=== PATIENT | female | born 1945 | race Caucasian/White ===

== ENCOUNTER → 2018-04-25 | Outpatient (CLI) | payer OTHER, MEDICARE | LOC: CIMAGING 07:38 | PROVIDERS: ATTEND Nurse Practitioner | DX: Z12.31 Encounter for screening mammogram for malignant neoplasm of breast (principal) ==

== ENCOUNTER → 2018-06-02 | Outpatient (CLI) | payer OTHER, MEDICARE | LOC: CIMAGING 09:06 | PROVIDERS: ATTEND Nurse Practitioner | DX: E11.9 Type 2 diabetes mellitus without complications (principal); E78.2 Mixed hyperlipidemia; R91.1 Solitary pulmonary nodule; Z87.891 Personal history of nicotine dependence | CPT/HCPCS: 71250-PO ==

== ENCOUNTER → 2018-06-10 | Outpatient (CLI) | payer OTHER, MEDICARE | LOC: CIMAGING 07:27 | PROVIDERS: ATTEND Nurse Practitioner | DX: R10.11 Right upper quadrant pain (principal); K83.8 Other specified diseases of biliary tract | CPT/HCPCS: 76705-PO ==

== ENCOUNTER → 2018-06-13 | Outpatient (CLI) | payer OTHER, MEDICARE | LOC: EMCIMAGING 12:06 | PROVIDERS: ATTEND Nurse Practitioner | DX: K80.50 Calculus of bile duct without cholangitis or cholecystitis without obstruction (principal); R10.11 Right upper quadrant pain | CPT/HCPCS: 74181-PN ==

== ENCOUNTER 2018-07-31 09:28 | Emergency (ER) | payer OTHER, MEDICARE ==
--- NOTE | 2018-07-31 11:00 | EDPHY ---
H & P Stated Complaint: poss. foreign body rt lung Time Seen by Provider: 07/31/18 09:39 HPI/ROS: CHIEF COMPLAINT: Pill down the wrong place History by patient HISTORY OF PRESENT ILLNESS: 72-year-old woman presents complaining of acute onset of right-sided chest pain, wheezing and cough shortly after taking her usual trazodone tell. Patient states that she took the pill with water and did not show but then suddenly felt like it was in the wrong place. She had lots of coughing all night. When she woke up this morning she coughed up a small piece of pill. She still feels the pleuritic chest pain and discomfort in her chest as if the pill is stuck in there. She had she has been able to eat and drink this morning without difficulty. She did take alcoholic [employer] cream and her coffee this morning. REVIEW OF SYSTEMS: As in HPI, and all other systems reviewed and are negative Source: Patient - Personal History Current Tetanus Diphtheria and Acellular Pertussis (TDAP): Yes - Medical/Surgical History Hx Asthma: No Hx Chronic Respiratory Disease: No Hx Diabetes: No Hx Cardiac Disease: No Hx Renal Disease: No Hx Cirrhosis: No Hx Alcoholism: No Hx HIV/AIDS: No Hx Splenectomy or Spleen Trauma: No Other PMH: no medical hx. hysterectomy - Social History Smoking Status: Former smoker - Physical Exam Exam: General Appearance: Alert, comfortable, speaking full sentences. Head: normocephalic, atraumatic Eyes: Pupils equal and round, reactive to light, no pallor or injection. Extraocular movements intact Mouth: Mucous membranes moist. Respiratory: Slightly increased effort, left clear, positive wheezing on right only with decreased sounds at the right base Cardiovascular: Regular rate and rhythm. S1, S2, no murmurs, gallops or rubs appreciated Gastrointestinal: Abdomen is soft and nontender, no masses, bowel sounds normal. Back: No CVA tenderness, no bony tenderness Neurological: Awake, alert and oriented x 3, no pronator drift, normal gait, no pronator drift Skin: Warm and dry, no rashes. Musculoskeletal: No deformities or tenderness. Full range of motion Extremities: no edema, no tenderness, DP2+ bilat Psychiatric: Patient has normal affect, there is no agitation. Constitutional: Initial Vital Signs Temperature (C) 36.4 C 05/16/19 09:43 Heart Rate 90 07/31/18 09:43 Respiratory Rate 20 07/31/18 09:43 Blood Pressure 157/115 H 07/31/18 09:43 O2 Sat (%) 91 L 07/31/18 09:43 O2 Delivery Mode Room Air Allergies/Adverse Reactions: codeine [Codeine] Allergy (Verified 07/31/18 09:41) Home Medications: Medication Instructions Recorded Herbals 08/07/09 Natural Remedies 08/07/09 SIMVASTATIN 08/07/09 Metformin HCl 07/31/18 traZODone 07/31/18 Medical Decision Making - Diagnostics Imaging Results: Imaging Impressions Chest X-Ray 07/31/18 09:53 Impression: Medial right basilar opacity with elevation of the right hemidiaphragm, which could be related to postobstructive atelectasis and/or pneumonia. Chest CT 07/31/18 10:10 Impression: Partially obstructive right endobronchial fluid/fat density debris as described with right middle lobe aspiration pneumonitis. Continued radiographic surveillance is recommended until resolution is documented. lM John was notified of these findings by telephone at 10:51 AM on 2018. Imaging: Discussed imaging studies w/ yardage caller Radiologist, I viewed and interpreted images myself ED Course/Re-evaluation: 72-year-old woman presents with right-sided pleuritic chest pain and isolated wheezing after feeling she inhaled her trazodone pill. Chest x-ray was done which showed no obvious foreign body. CT scan was then done which showed the pill in her right lower bronchus with associated pneumonitis. I discussed the case with Dr. Yayo Johnson, land law examiner on-call who requests the patient transfer to [facility] for bronchoscopy. I discussed the case Dr. Nathan Tom in the emergency department who accepts the patient in transfer. I discussed the CT findings and the plan with the patient who understands and is agreeable. Because she admitted to drinking a fair amount of [employer] virus cream this morning her will drive her there as she is refusing ambulance transport. In preparation for her procedural sedation and IV was placed and ECG was done. ECG showed normal sinus rhythm with normal axis normal intervals and poor R- wave progression in the anterior leads. Impression: Abnormal EKG. Departure - Departure Disposition: [facility] ER Clinical Impression: Foreign body in bronchus Qualifiers: Encounter type: initial encounter Qualified Code(s): T17.508A - Unspecified foreign body in bronchus causing other injury, initial encounter Condition: Fair Referrals: Jia Echavarria, ROAD MANAGER [Primary Care Provider] - As per Instructions
[2018-07-31] MEDS ORDERED: BENZOCAINE UNIT DOSE SPRAY HURRICAINE MM ONE (12:28)
[2018-07-31] MEDS ORDERED: MIDAZOLAM 2 MG/2 ML VIAL ONE (12:29)
[2018-07-31] MEDS ORDERED: LIDOCAINE 1% 300 MG/30 ML SDV ONE ×2 (12:29→12:30)
[2018-07-31] MEDS ORDERED: LIDOCAINE 2% JELLY 6 ML TOPICAL SYR ONE (12:29)
[2018-07-31] MEDS ORDERED: fentaNYL 100 MCG/2 ML INJ ONE (12:29)
[2018-07-31] MEDS ORDERED: LIDOCAINE 1% 2 ML INJ ID PRN (12:56)
[2018-07-31] MEDS ORDERED: NS 500 ML IV ONE ×2 (12:56→13:56)
[2018-07-31] MEDS ORDERED: ALBUTEROL 3 ML DEYVIAL IH ONE (12:56)
--- NOTE | 2018-07-31 14:05 | PDHPUP ---
History & Physical Update H&P update statement: Pill aspiration into the right lower lobe. Patient aspirated a pill last night at 10:30 a.m.. Has had persistent pulmonary symptoms. Presented to [facility] this morning. Congestion heard on the right. CT scan shows material in the right lower lobe bronchus consistent with her known pill aspiration. She has no significant medical problems that would be a contraindication to bronchoscopy. She is on no anti-platelet agents and no anti coagulants. Other medications are as listed. She is allergic possibly to penicillins and codeine. Physical examination reveals a pleasant woman who is in no distress. Vital signs within normal limits. On room air saturations are in the mid 90s. HEENT is unremarkable. The chest reveals coarse breath sounds with a focal wheeze over the lower right chest. Few rales are present. The heart is regular in rate and rhythm, no gallop, no murmur. The abdomen extremities are within normal limits. Neurologic examination is normal. CT scan was reviewed with findings as noted above. In addition she has a pulmonary nodule on the right, this apparently has been known for years, followed for years without change. There is a vague infiltrate anteriorly and the right middle lobe. This may be related to her aspiration. A/P: Pill aspiration, with retained pill/pill materials in the right lower lobe. For bronchoscopy and removal of the pills/pill fragments/associated mucus. Cultures will be sent. Antibiotics postprocedure may or may not be needed. If she does well anticipate she will be discharged home for outpatient follow-up as needed. All the above was discussed with the patient and her family. Risks and benefits were discussed.
--- NOTE | 2018-07-31 14:06 | PDPROPOC ---
Sedation Plan of Care Sedation Plan of Care: vital signs stable, mental status noted, patient educated of risks, benefits, alternatives, patient can tolerate sedation ASA Classification: ASA 2 Planned drugs: fentanyl, midazolam Mallampati Score: Class 2 Mallampati Reference Image: Patient passed 3-3-2 rule?: Yes
[2018-07-31] MEDS ORDERED: ALBUTEROL 3 ML DEYVIAL ONE (14:46)
[2018-07-31 17:17] VITALS: BP 97/58
--- NOTE | 2018-07-31 17:52 | GPN ---
[f rep st] PROCEDURE NOTE PROCEDURE: Therapeutic bronchoscopy. REASON FOR BRONCHOSCOPY: Pill aspiration, with retained pill in the right mainstem bronchus. DESCRIPTION OF PROCEDURE: The procedure was performed in the endoscopy unit. Informed consent was o btained from the patient. Appropriate time-out was performed. The posterior oropharynx was anesthet ized with 5 cc of 4% lidocaine, the vocal cords and lower tracheobronchial tree were anesthetized wit h 1% lidocaine, approximately 25 cc. Conscious sedation, included 4 mg of Versed and 100 mcg of fentanyl given intravenously. The fiberoptic bronchoscope was passed via bite block orally in the larynx. The vocal cords were xenia ntified. They moved normally with cough and respiration. The bronchoscope was advanced into the tra iftikhar and in the lower tracheobronchial tree bilaterally. In the right mainstem bronchus, there was t he residual pill totally occluding the right main below the level of the right upper lobe. A basket retrieval device was used. On the first pass, part of the pill was removed. The pill was quite fria ble at this point and broke up fairly easily, but subsequent suction attempts were unsuccessful. The basket retrieval device was then passed again and the remainder of the pill was removed. Some small residual pieces were left coating airways. These were subsequently removed with suction and lavage. Where the pill was sitting after removal, there was evidence of erythema and a mucosal "burn." Thi s did not result in significant compression of the airways. Secretions were relatively minimal. A c ulture was sent. The patient tolerated the procedure well. There were no complications. Vital signs and oxygen satur ations on supplemental oxygen remained stable throughout the procedure. IMPRESSION: Successful removal of the patient's aspirated pill from the right mainstem bronchus. /[id number]/MODL
== END 2018-07-31 12:32 | disposition still patient (30) ==
LOC: CED 09:28 → UNDOADMOB 12:36 → UNDODISOB 17:20
PROC: 0BC38ZZ Extirpation of Matter from Right Main Bronchus, Via Natural or Artificial Opening Endoscopic (ICD-10-PCS; principal; 2018-07-31 13:00)
DX: T17.598A Other foreign object in bronchus causing other injury, initial encounter (principal); Y92.009 Unspecified place in unspecified non-institutional (private) residence as the place of occurrence of the external cause; R91.1 Solitary pulmonary nodule
CPT/HCPCS: 31635; 71046; 71250; J2250; J3010; J7613